=== PATIENT | female | born 1940 | race Caucasian/White ===

== ENCOUNTER 2020-05-24 17:33 | Inpatient (IN) | payer OTHER ==
[~2020-05-24] VITALS: Ht 170.2 cm; Wt 54.4 kg
[2020-05-24] MEDS ORDERED: ZESTRIL20 MG PO (17:45)
[2020-06-07] MEDS ORDERED: CLOPIDOGREL BIS75 MG PO (19:43)
[2020-06-07] MEDS ORDERED: LIPITOR20 MG PO (19:43)
[2020-06-07] MEDS ORDERED: ASA-EC81 MG PO (19:43)
[2020-06-07] MEDS ORDERED: LISINOPRIL20 MG PO (19:43)
[2020-06-07] MEDS ORDERED: HYDRALAZINE HCL25 MG PO (19:43)
[2020-06-07] MEDS ORDERED: CARVEDILOL6.25 MG PO (19:43)
== END 2020-06-07 23:01 | disposition home health service (06) | DRG 281 ==
LOC: ER 17:33 → ICU 23:09 → ICU-2 23:09 → ICU 05-25 01:50 → MEDJ 05-31 19:19 → MEDI 06-01 07:49
PROVIDERS: ADMIT Internal Medicine; ATTEND Internal Medicine
PROC: 4A12X4Z Monitoring of Cardiac Electrical Activity, External Approach (ICD-10-PCS; 2020-05-24)
PROC: B24BZZZ Ultrasonography of Heart with Aorta (ICD-10-PCS; principal; 2020-05-25)
PROC: BW28ZZZ Computerized Tomography (CT Scan) of Head (ICD-10-PCS; 2020-05-25)
PROC: B54DZZZ Ultrasonography of Bilateral Lower Extremity Veins (ICD-10-PCS; 2020-05-25)
PROC: 3E0336Z Introduction of Nutritional Substance into Peripheral Vein, Percutaneous Approach (ICD-10-PCS; 2020-05-25)
PROC: CP2YYZZ Tomographic (Tomo) Nuclear Medicine Imaging of Musculoskeletal System, Other using Other Radionuclide (ICD-10-PCS; 2020-05-29)
PROC: 0DH63UZ Insertion of Feeding Device into Stomach, Percutaneous Approach (ICD-10-PCS; 2020-06-04)
DX: I21.4 Non-ST elevation (NSTEMI) myocardial infarction (principal); E87.0 Hyperosmolality and hypernatremia; N17.9 Acute kidney failure, unspecified; E46 Unspecified protein-calorie malnutrition; I10 Essential (primary) hypertension; E86.0 Dehydration; G30.0 Alzheimer's disease with early onset; F02.80 Dementia in other diseases classified elsewhere, unspecified severity, without behavioral disturbance, psychotic disturbance, mood disturbance, and anxiety; R13.11 Dysphagia, oral phase; E87.6 Hypokalemia; B95.61 Methicillin susceptible Staphylococcus aureus infection as the cause of diseases classified elsewhere; Z74.01 Bed confinement status; Z20.828 Contact with and (suspected) exposure to other viral communicable diseases; B96.4 Proteus (mirabilis) (morganii) as the cause of diseases classified elsewhere; L89.152 Pressure ulcer of sacral region, stage 2; R13.19 Other dysphagia